=== PATIENT | female | born 1960 | race Caucasian/White ===

== ENCOUNTER 2016-07-27 19:45 | Emergency (ER) | payer SELFPAY ==
--- NOTE | ~2016-07-27 | ER ---
PATIENT'S NAME: LEONEL HOUGH [facility] AGE: 56 Y [address] ROOM: [place] [address] LOCATION: [facility] ADMIT DATE: 07/27/2016 ER/Outpatient Report DISCHARGE DATE: 07/28/2016 FAMILY PHYSICIAN: Physician, Unknown ATTENDING PHYSICIAN: Pankaj Loyola Admission date and time documented on the medical record. I saw the patient at 2000 hours. CHIEF COMPLAINT: Lightheadedness, dizziness, headache, tunnel vision. HISTORY OF PRESENT ILLNESS: This patient is a 56-year-old female who presents to the emergency room with onset at around 1530 hours this afternoon with lightheadedness, dizziness, headache, tunnel vision. Did take some Excedrin migraine [id number] medication at 1630 hours. Presented to the emergency room for evaluation. Does have some nausea, but no vomiting. No chest pain or shortness of breath. Blood pressure went up with visual change, headache and lightheadedness. No abdominal pain. No diarrhea, urinary frequency, urgency or dysuria. No fall or trauma. No recent colds, coughs, flus, fever, chills, or sweats. No eyes, ears, nose, throat pain. Does have the visual disturbance with tunnel vision. No syncope or near syncope. No joint or muscle swelling, redness, or pain. No skin eruptions or rash. No history of neuro changes, psych issues, or endocrine problems. HOME MEDICATIONS: See attached medication list. ALLERGIES: 1. LATEX. 2. MORPHINE SULFATE. SOCIAL HISTORY: The patient smokes 2 packs of cigarettes a week. Drinks about 3 beers a day. SIGNIFICANT PAST MEDICAL HISTORY: 1. Fibromyalgia. 2. Tobacco abuse. 3. Alcohol abuse. OPERATIONS: 1. x2. 2. Appendectomy. 3. Left arm surgery. PATIENT'S NAME: LEONEL HOUGH [facility] AGE: 56 Y [address] ROOM: [place] [address] LOCATION: [facility] ADMIT DATE: 07/27/2016 ER/Outpatient Report DISCHARGE DATE: 07/28/2016 FAMILY PHYSICIAN: Physician, Unknown ATTENDING PHYSICIAN: Pankaj Loyola REVIEW OF SYSTEMS: All systems reviewed by me are negative with the exception of those discussed in history of present illness. PHYSICAL EXAMINATION: VITAL SIGNS: Temperature 98.1 tympanic, pulse 89, respirations 16, blood pressure 207/86, O2 saturation on room air is 96%. HEAD: Normocephalic. EYES: Extraocular muscles intact. PERRL. Sclerae and conjunctivae clear, nonicteric. Fundi benign. EARS: Clear TMs bilaterally. NOSE: Clear. THROAT: Clear. Mucous membranes moist. Teeth, jaw intact. NECK: No nuchal rigidity. No thyromegaly or cervical lymphadenopathy. No carotid bruits. No tenderness. SPINE: Nontender. No deformity. LUNGS: Clear. No rales, rhonchi, or wheezes. HEART: Regular. Pulses are palpable. ABDOMEN: Soft, nondistended and nontender. Good bowel tones. No organomegaly or abnormal mass palpable. No CVA tenderness. EXTREMITIES: Without peripheral edema, cyanosis, or deformity. NEURO: Cranial nerves intact. No lateralized sign. The patient is awake, alert, cooperative. Motor and sensory intact. NIH stroke scale was 0. SKIN: Clear. No skin eruptions or rash. DIAGNOSTIC DATA: EKG showed sinus rhythm. No acute ST elevation, ischemic change, or arrhythmia. Chest x-ray showed no acute infiltrate or changes. We will review x-ray with Radiology. Laboratory: CMS was normal except for a slight low potassium of 3.6, elevated glucose 111, magnesium was 2, CPK was 100. Point of care cardiac enzymes were normal. CRP was less than 0.29. TSH was 3.24. White count 7800, 48 segs, 41 lymphs, 8 monos, 3 eos, 1 baso. Hemoglobin 13.2, hematocrit 38.6, platelet count 237,000. Sedimentation rate was 11, PTT was 26, pro-time is 10 with an INR 1.0. [address] scan of the brain showed no acute bleed, midline shift, mass effect or skull fracture. CT scan was read by Radiology, see dictated transcribed report. IMPRESSION: 1. Headache with visual disturbance, tunnel vision and nausea most likely migrainous in type. PATIENT'S NAME: LEONEL HOUGH [facility] AGE: 56 Y [address] ROOM: [place] [address] LOCATION: ED ADMIT DATE: 07/27/2016 ER/Outpatient Report DISCHARGE DATE: 07/28/2016 FAMILY PHYSICIAN: Physician, Unknown ATTENDING PHYSICIAN: Pankaj Loyola 2. History of fibromyalgia. 3. History of tobacco abuse. PLAN: The patient was dismissed home. Observation. Activity as tolerated. Continue home medications and care. Rest. No work tomorrow. Fluids, diet as tolerated. Tylenol or ibuprofen 2 every 4-6 hours as needed for headache. Follow up with personal physician in 1-2 days if needed. Discussion ensued with the patient concerning my findings and recommendations, she understands. MD SALLY BALES/modl /[id number] d: 07/28/161 t: 08/03/16 0613, OUTPATIENT REPORT
[~2016-07-27 19:45] MED LIST: CYMBALTA30 MG PO; CYMBALTA60 MG PO; DRISDOL50000 UNIT PO; DUAVEE 0.45-201 EACH PO; VALTREX1000 MG PO; VITAMIN B-1000 MCG/M SUB-Q; VITAMIN B-1100 MG PO
[2016-07-27 20:42] LABS: BASOPHIL % 0.5 %; EOSINOPHIL # 0.2 K/uL (0.0-0.5); EOSINOPHIL % 2.5 %; HEMATOCRIT 38.6 % (33.0-46.0); HEMOGLOBIN 13.2 g/dL (10.0-15.0); IMMATURE GRANULOCYTE % 0.1 %; LYMPHOCYTE # 3.2 K/uL (0.8-4.0); LYMPHOCYTE % 41.4 %; MCH 33.7 pg (27.0-34.0); MCHC 34.2 gm/dL (32.0-36.5); MCV 98.5 fl (83.0-98.0); MONOCYTE # 0.6 K/uL (0.0-1.0); MONOCYTE % 7.7 %; NEUTROPHIL # (ANC) 3.7 K/uL (1.8-7.8); NEUTROPHIL % 47.8 %; NRBC % 0 /100WBC (0-0.00); PLATELET COUNT 237 K/uL (150-450); RBC 3.92 M/uL (3.50-5.50); RDW-CV 12.1 % (11.9-14.6); WBC 7.8 K/uL (4.0-11.0)
[2016-07-27 20:51] LABS: PTT 26 SECONDS (25-32)
[2016-07-27 21:04] LABS: ALBUMIN 3.7 gm/dL (3.5-5.0); ALK PHOS 90 IU/L (33-138); ALT 34 IU/L (12-78); ANION GAP 11.6 (10.0-19.0); AST 22 IU/L (10-40); BLOOD UREA NITROGEN 18 mg/dL (6-24); CALCIUM 9.4 mg/dL (8.5-10.5); CHLORIDE 107 mMol/L (96-110); CO2 26 mMol/L (22-32); CPK 100 IU/L (21-215); CREATININE 0.7 mg/dL (0.5-1.1); ESTIMATED GFR (MDRD EQUATION) > 60; POTASSIUM 3.6 mMol/L (3.7-5.1); SODIUM 141 mMol/L (135-145); TOTAL BILIRUBIN 0.2 mg/dL (0.0-1.5); TOTAL PROTEIN 7.5 g/dL (6.0-8.4)
== END 2016-07-28 00:30 | disposition disaster alternative care site (69) ==
LOC: GMED 19:45
PROVIDERS: Emergency Medicine
DX: R51 Headache (principal); H53.489 Generalized contraction of visual field, unspecified eye; H53.9 Unspecified visual disturbance; R11.0 Nausea; F17.210 Nicotine dependence, cigarettes, uncomplicated; M79.7 Fibromyalgia; Z90.49 Acquired absence of other specified parts of digestive tract; Z88.5 Allergy status to narcotic agent; Z91.040 Latex allergy status; Z98.890 Other specified postprocedural states